=== PATIENT | female | born 1985 | race Asian ===

== ENCOUNTER → 2016-04-21 | Outpatient (CLI) | payer OTHER ==
[~2016-04-21] MED LIST: FRRS300 PO; MTR600X PO; OXYC-57 PO; PRENTAB26 PO
[2016-04-21 14:19] LABS: GTGD 50 Grams
[2016-04-22 15:26] LABS: AFP CONCENTRATION 84.2 NG/ML; AFP MULTIPLE OF MEDIAN 1.79; AFPTS GESTATIONAL AGE 17.9 WEEKS; AFPTS INSULIN DEP DIABETIC? NO; AFPTS MATERNAL WT 128 LBS; HISTORY OF NTD NO; INHIBIN A 183 PG/ML; INHIBIN A MOM 1.03; REPEAT SAMPLE? NO; hCG MULTIPLE OF MEDIAN 2.66
== END | disposition home or self-care (01) ==
LOC: C.LAB1850 12:16
PROVIDERS: ATTEND Obstetrics & Gynecology
DX: Z34.02 Encounter for supervision of normal first pregnancy, second trimester (principal)

== ENCOUNTER → 2016-06-23 | Outpatient (CLI) | payer OTHER ==
[2016-06-23 16:50] LABS: HEMATOCRIT 37.2 % (37-47)
[2016-06-23 17:38] LABS: URINE APPEARANCE CLEAR (CLEAR); URINE BILIRUBIN NEG (NEG); URINE COLOR YELLOW; URINE EPITHELIAL CELL AUTO 0-5 /lpf (0-5); URINE NITRITE NEG (NEG); URINE PH 6.5 (4.5-7.5); URINE SPECIFIC GRAVITY 1.004 (1.000-1.030); UROBILINOGEN NEG (NEG)
[2016-06-23 17:48] LABS: MANUAL MICROSCOPIC REQUIRED? NO; REVIEW REQ? NO
[2016-06-23 22:21] LABS: GTGD 50 Grams
== END | disposition home or self-care (01) ==
LOC: C.LAB1850 15:05
PROVIDERS: ATTEND Obstetrics & Gynecology
DX: Z34.03 Encounter for supervision of normal first pregnancy, third trimester (principal)

== ENCOUNTER → 2016-08-31 | Outpatient (CLI) | payer OTHER | END | disposition home or self-care (01) | LOC: C.LABSPEC 15:49 | PROVIDERS: ATTEND Obstetrics & Gynecology | DX: Z34.03 Encounter for supervision of normal first pregnancy, third trimester (principal) ==

== ENCOUNTER 2016-09-25 05:31 | Inpatient (IN) | payer OTHER ==
[~2016-09-25] VITALS: Ht 160 cm; Wt 70.0 kg
[2016-09-25] MEDS ORDERED: LACTATED RINGER'S 1000ML 1,000 ML IV PRN (16:03)
[2016-09-25] MEDS ORDERED: LACTATED RINGER'S 1000ML 1,000 ML IV SCH ×2 (16:03→21:31)
[2016-09-25] MEDS ORDERED: ACETAMINOPHEN 650 MG SUPP PR STA (16:05)
[2016-09-25] MEDS ORDERED: PATIENT'S ALLERGY INFO NEEDS ENTERED SCH (16:15)
[2016-09-25] MEDS ORDERED: AMPICILLIN/SULBACTAM SOD INJ 3,000 MG in SODIUM CHLORIDE 0.9% 100ML 100 ML IV SCH (16:30)
[2016-09-25 16:45] LABS: HEMATOCRIT 39.5 % (37-47); MEAN CELL VOLUME 92.7 fL (80-100); MEAN CORPUSCULAR HEMOGLOBIN 31.2 pg (25-34); MEAN CORPUSCULAR HGB CONC 33.7 g/dl (32-36); MEAN PLATELET VOLUME 10.8 fL (7.4-10.4); PLATELET COUNT 234 K/uL (130-400); RED BLOOD COUNT 4.26 M/uL (4.2-5.4); WHITE BLOOD COUNT 15.05 K/uL (4.8-10.8)
[2016-09-25] MEDS ORDERED: EpHEDrine SULFATE INJ 50 MG/ML AMP ONE (16:52)
[2016-09-25] MEDS ORDERED: BUPIVACAINE 0.25% 30 ML VIAL ONE (16:52)
[2016-09-25] MEDS ORDERED: FENTANYL CITRATE INJ 50 MCG/1 ML 2 ML VIAL ONE (16:53)
[2016-09-25] MEDS ORDERED: FENTANYL 2MCG/ML ROPIV 1.25MG/ML 100ML BAG EPI ONE (16:53)
[2016-09-25] MEDS ORDERED: NALOXONE HCL INJ 1 MG in SODIUM CHLORIDE 0.9% 1000ML 1,000 ML IV PRN (17:22)
[2016-09-25] MEDS ORDERED: LACTATED RINGER'S 1000ML 500 ML IV PRN (17:22)
[2016-09-25 17:28] LABS: BASO % 0.1 %; BASO ABS # 0.01 K/uL (0-0.2); COMPLETE YES; EOS % 0.1 %; IG% 0.2 %; LYMPH % 4.7 %; LYMPH ABS # 0.71 K/uL (1.2-3.4); MONO % 2.7 %; NEUT % 92.2 %
[2016-09-25] MEDS ORDERED: NALOXONE HCL INJ 0.4 MG/1 ML VIAL/CARP IV PRN (17:30)
[2016-09-25] MEDS ORDERED: ONDANSETRON INJ 2 MG/ML 2 ML VIAL IV PRN (17:30)
[2016-09-25] MEDS ORDERED: NALBUPHINE HCL INJ 10 MG/ML AMP IV PRN (17:30)
[2016-09-25] MEDS ORDERED: EpHEDrine SULFATE INJ 50 MG/ML AMP IV PRN (17:30)
[2016-09-25] MEDS ORDERED: DiphenhydrAMINE HCL 50 MG/ML VIAL IV PRN (17:30)
[2016-09-25] MEDS ORDERED: FENTANYL 2MCG/ML ROPIV 1.25MG/ML 100ML BAG EPI PRN (17:30)
[2016-09-25 17:45] VITALS: Ht 160 cm; Wt 70.0 kg
[2016-09-25] MEDS ORDERED: PRENTAB26 PO (17:53)
[2016-09-25] MEDS ORDERED: OXYTOCIN INJ 10 UNITS/ML VIAL ONE ×2 (20:35→21:19)
[2016-09-25] MEDS ORDERED: LIDOCAINE/EPINEPHRINE 2% 1:200,000 20 ML SDV ONE (20:38)
[2016-09-25] MEDS ORDERED: CITRIC ACID/SODIUM CITRATE 15 ML UDC PO ONE (20:45)
[2016-09-25] MEDS ORDERED: CEFAZOLIN IV 2,000 MG in DEXTROSE 5% 50ML 50 ML IV STA (20:57)
[2016-09-25] MEDS ORDERED: CEFAZOLIN SOD 1 GM VIAL ONE (21:09)
[2016-09-25] MEDS ORDERED: CARBOPROST TROMETHAMINE 250 MCG/ML AMP ONE (21:10)
[2016-09-25] MEDS ORDERED: ONDANSETRON INJ 2 MG/ML 2 ML VIAL ONE (21:15)
[2016-09-25] MEDS ORDERED: DEXAMETHASONE SOD INJ 4 MG/ML VIAL ONE (21:15)
[2016-09-25] MEDS ORDERED: MoRPHine SULFATE PF 1 MG/ML 10 ML AMP/VIAL ONE (21:20)
[2016-09-25] MEDS ORDERED: OXYTOCIN INJ 30 UNITS in LACTATED RINGER'S 1000ML 1,000 ML IV SCH (21:31)
[2016-09-25] MEDS ORDERED: DIPHTHERIA/TETANUS/PERTUSSIS 0.5 ML SYR/VIAL IM. ONE (21:45)
[2016-09-25] MEDS ORDERED: KETOROLAC TROMETHAMINE 30 MG/ML VIAL IV. PRN ×2 (21:45→22:00)
--- NOTE | 2016-09-25 21:54 | Anesthesia Procedure Note ---
Anesthesia Epidural Removal Nt Date & Time Sep 25, 2016 at 21:54 Notes Mental Status: alert / awake / arousable, participated in evaluation Nausea / Vomiting: adequately controlled Pain: adequately controlled Airway Patency, RR, SpO2: stable & adequate BP & HR: stable & adequate Hydration State: stable & adequate Neuraxial Anesthesia: was administered Anesthetic Complications: no major complications apparent, pt satisfied with anesthetic care Epidural: removed without complications, with tip intact
[2016-09-25] MEDS ORDERED: MoRPHine SULFATE PF 1 MG/ML 10 ML AMP/VIAL EPI PRN (22:00)
[2016-09-25] MEDS ORDERED: NO NARCOTICS OR SEDATIVES SCH (22:00)
[2016-09-25] MEDS ORDERED: CONTINUE MEDICATION ONE (22:00)
[2016-09-25] MEDS ORDERED: AMPICILLIN/SULBACTAM SOD INJ 1,500 MG in SODIUM CHLORIDE 0.9% 100ML 100 ML IV SCH (22:00)
--- NOTE | 2016-09-25 23:14 | Anesthesiology Progress Note ---
Anesthesia Post Op Note Date & Time Sep 25, 2016 at 23:13 Notes Mental Status: alert / awake / arousable, participated in evaluation Pt Amnestic to Procedure: No Nausea / Vomiting: adequately controlled Pain: adequately controlled Airway Patency, RR, SpO2: stable & adequate BP & HR: stable & adequate Hydration State: stable & adequate Neuraxial Anesthesia: was administered, sensory block is resolving Anesthetic Complications: no major complications apparent
--- NOTE | 2016-09-25 23:21 | [facility] Operative Report ---
Operative Report Operative Date Sep 25, 2016. Pre-Operative Diagnosis 1. Term intrauterine 2. Spontaneous rupture of membranes 3. Non reassuring heart rate 4. Thick meconium 5. Chorioamnionitis Post-Operative Diagnosis same Procedure(s) Performed Primary low transverse section Surgeon Dr. Ana Lua Chin Strap Sewer Surgeon(s) Diana Calderon. RN Estimated Blood Loss 600CC Findings Viable male infant Apgars 8 and 9. Normal uterus tubes and ovaries bilaterally. Fluids 1300 Specimens cord blood placenta - exam cord gases Drains Harper catheter Anesthesia epidural with Duramorph Complication(s) None Disposition Recovery Room / PACU Indications 30-year-old 1 para 0 at term who presented with spontaneous rupture of membranes and developed a fever. She was given the diagnosis of chorioamnionitis and started on broad-spectrum antibiotics. She was progressing slowly and the heart tones became more nonreassuring. She also developed thick meconium and given extremely slow progress as well as the deep variable decelerations that would come with intermittent contractions the decision was made to recommend and the patient agreed. Description of Procedure The patient was taken to the operating room and identified. She was placed in the supine position with a leftward tilt and prepped and draped in the usual sterile fashion. A Harper catheter had already been placed under sterile conditions. The knife was used to create a Pfannenstiel skin incision that was carried down to the underlying layer of fascia. The fascia was nicked in the midline and was extended laterally using Riggs scissors. The fascia was elevated and transected away from the underlying rectus muscles both superiorly and inferiorly both sharply and bluntly. The rectus muscles were bluntly in the midline and the peritoneal cavity was bluntly entered into. The opening was stretched. The bladder blade was placed. The vesicouterine peritoneum was elevated and entered into sharply and extended laterally and the bladder flap was created digitally. The bladder blade was replaced. The knife was used to create a hysterotomy that was stretched. The mirror finishing machine operator hand was placed through the hysterotomy and the head was elevated and flexed and with fundal pressure delivered. Shoulders and body were delivered rapidly with further fundal pressure and the nose and mouth were bulb suctioned. The cord was clamped and cut and the was handed off to the awaiting early childhood. Cord blood and cord gases were obtained. The placenta was manually expressed. The uterus was exteriorized and cleared of all clots and debris. The hysterotomy was closed in a running inter locking fashion followed by a second imbricating layer using 0 Vicryl. Additional bleeding sites at the hysterotomy were stitched for excellent hemostasis using 2-0 Vicryl. The pelvis was irrigated. The uterus returned to the abdomen. The gutters were cleared of all clots and debris. The hysterotomy was reinspected and noted to be hemostatic. The fascia was then closed in a running fashion using 0 Vicryl. The subcutaneous fat was copiously irrigated. The subcutaneous tissue was reapproximated using 2-0 chromic. The skin was then closed in a subcuticular fashion using 4-0 Vicryl. All sponge lap and needle counts were correct 2. The patient was returned to the recovery room in stable condition. I attest to the content of the Intraoperative Record and any orders documented therein. Any exceptions are noted below.
[2016-09-26] VITALS (21 sets, daily range): BP systolic 90–114; BP diastolic 55–75; PULSE 72–92; TEMP 36.6–37.4; O2SAT 95–100
[2016-09-26 06:20] LABS: HEMATOCRIT 31.9 % (37-47); MEAN CELL VOLUME 92.7 fL (80-100); MEAN CORPUSCULAR HEMOGLOBIN 30.8 pg (25-34); MEAN CORPUSCULAR HGB CONC 33.2 g/dl (32-36); PLATELET COUNT 209 K/uL (130-400); RED BLOOD COUNT 3.44 M/uL (4.2-5.4); WHITE BLOOD COUNT 21.86 K/uL (4.8-10.8)
[2016-09-26 06:54] LABS: BASO ABS # 0.01 K/uL (0-0.2); COMPLETE YES; IG% 0.4 %; LYMPH % 5.1 %; LYMPH ABS # 1.12 K/uL (1.2-3.4); MONO % 4.3 %; NEUT % 90.2 %
--- NOTE | 2016-09-26 07:54 | Progress Note ---
Subjective Sep 26, 2016. Subjective conversation w/ patient, physical exam Ambulation: limited ambulation (at rest with duramorph orders) Voiding: jolly catheter in place Passing Gas: Yes Diet Tolerance: Clear Liquids Lochia: Moderate Feeding Type: Breast Feeding Pain: denies issues with pain Comment: denies fever or chills. Objective Vital Signs Date Time Temp Pulse Resp B/P (MAP) Pulse Ox O2 Delivery O2 Flow Rate FiO2 09/26/16 06:20 18 95 09/26/16 05:20 18 95 09/26/16 04:10 37.1 83 18 114/72 (86) 96 Room Air 09/26/16 04:10 18 96 09/26/16 03:20 18 96 09/26/16 02:20 18 96 09/26/16 01:20 84 18 112/72 (85) 95 Room Air 09/26/16 01:20 18 95 09/26/16 00:20 37.4 92 18 114/75 (88) 96 Room Air 09/26/16 00:20 18 96 09/26/16 00:20 Room Air Physical Exam General Appearance: WELL-APPEARING, WD/WN, NO APPARENT DISTRESS (cheeks flush) Respiratory/Chest: lungs clear Cardiovascular: regular rate, rhythm Abdomen: non tender, soft Fundus: Firm, Relation to Umbilicus (2 down) Incision Description: Clean, Dry & Intact (dressing intact) Extremities: non-tender Laboratory Results Last 24 Hours Test 09/25/16 16:15 09/26/16 06:05 White Blood Count 15.05 K/uL 21.86 K/uL Red Blood Count 4.26 M/uL 3.44 M/uL Hemoglobin 13.3 g/dL 10.6 g/dL Hematocrit 39.5 % 31.9 % Mean Corpuscular Volume 92.7 fL 92.7 fL Mean Corpuscular Hemoglobin 31.2 pg 30.8 pg Mean Corpuscular Hemoglobin Concent 33.7 g/dl 33.2 g/dl Platelet Count 234 K/uL 209 K/uL Mean Platelet Volume 10.8 fL 10.0 fL Neutrophils (%) (Auto) 92.2 % 90.2 % Lymphocytes (%) (Auto) 4.7 % 5.1 % Monocytes (%) (Auto) 2.7 % 4.3 % Eosinophils (%) (Auto) 0.1 % 0.0 % Basophils (%) (Auto) 0.1 % 0.0 % Neutrophils # (Auto) 13.89 K/uL 19.68 K/uL Lymphocytes # (Auto) 0.71 K/uL 1.12 K/uL Monocytes # (Auto) 0.40 K/uL 0.95 K/uL Eosinophils # (Auto) 0.01 K/uL 0.01 K/uL Basophils # (Auto) 0.01 K/uL 0.01 K/uL RDW Standard Deviation 44.0 fL 44.4 fL RDW Coefficient of Variation 13.1 % 13.0 % Immature Granulocyte % (Auto) 0.2 % 0.4 % Immature Granulocyte # (Auto) 0.03 K/uL 0.09 K/uL Red Blood Cell Morphology Unremarkable Assessment and Plan Post-, Post-Op Day#: 1 Continue Routine Care: stable, routine care. discussed circumstances for delivery. will watch temp curve. adv diet, ambulate later today. jolly still in.
[2016-09-26] MEDS: SIMETHICONE 80 MG CHEW PO SCH ×4 (08:12→19:18)
[2016-09-26] MEDS: DOCUSATE SODIUM 100 MG CAP PO SCH ×2 (08:12→19:17)
[2016-09-26] MEDS: PRENATAL VITAMIN TAB PO SCH (08:12)
[2016-09-26] MEDS ORDERED: ONDANSETRON INJ 2 MG/ML 2 ML VIAL IV PRN (16:30)
[2016-09-26] MEDS ORDERED: OXYCODONE/ACETAMINOPHEN 5-325 TAB PO PRN (16:30)
[2016-09-26] MEDS ORDERED: DC INTRASPINAL MORPHINE ONE (16:30)
[2016-09-26] MEDS ORDERED: PROMETHAZINE HCL INJ 25 MG in SODIUM CHLORIDE 0.9% 50ML 50 ML IV PRN (16:30)
[2016-09-26] MEDS ORDERED: DiphenhydrAMINE HCL 50 MG/ML VIAL IV PRN (16:30)
[2016-09-26] MEDS ORDERED: MEPERIDINE HCL 50 MG/ML CARP IV PRN ×2 (16:30)
[2016-09-26] MEDS: OXYCODONE/ACETAMINOPHEN 5-325 TAB PO PRN (19:18)
[2016-09-26] MEDS: IBUPROFEN 600 MG TAB PO PRN (19:18)
--- NOTE | 2016-09-27 06:46 | Progress Note ---
Subjective Sep 27, 2016. Subjective conversation w/ patient, physical exam Ambulation: ambulating normally Voiding: no voiding problems Passing Gas: Yes Diet Tolerance: Regular Diet Lochia: Small Feeding Type: Breast Feeding Pain: denies pain issues Objective Vital Signs Date Time Temp Pulse Resp B/P (MAP) Pulse Ox O2 Delivery O2 Flow Rate FiO2 09/26/16 23:25 Room Air 09/26/16 23:25 36.6 72 18 90/55 (67) Room Air 09/26/16 19:30 37.1 92 16 97/62 (74) 09/26/16 15:48 36.7 87 20 96/61 (73) 100 Room Air 09/26/16 15:45 16 95 09/26/16 15:45 95 Room Air 09/26/16 14:20 16 98 09/26/16 13:20 18 97 09/26/16 12:20 18 99 09/26/16 11:20 18 99 09/26/16 11:20 75 16 91/57 (68) 99 Room Air 09/26/16 10:20 18 95 09/26/16 09:20 20 98 09/26/16 08:20 18 95 09/26/16 07:55 95 Room Air 09/26/16 07:50 37.2 76 18 101/65 (77) 97 Room Air 09/26/16 07:20 16 95 Physical Exam General Appearance: WELL-APPEARING, WD/WN, NO APPARENT DISTRESS Respiratory/Chest: lungs clear Cardiovascular: regular rate, rhythm Abdomen: non tender, soft Fundus: Firm, Relation to Umbilicus (2down) Incision Description: Clean, Dry & Intact Extremities: non-tender Laboratory Results Last 24 Hours Test 09/27/16 06:02 Assessment and Plan Post-, Post-Op Day#: 2 Continue Routine Care: stable, routine care, breast feeding. no temp issues. cbc this am pending.
[2016-09-27 06:49] LABS: BASO % 0.1 %; BASO ABS # 0.01 K/uL (0-0.2); COMPLETE YES; HEMATOCRIT 28.6 % (37-47); IG% 0.4 %; LYMPH % 11.8 %; LYMPH ABS # 2.04 K/uL (1.2-3.4); MEAN CELL VOLUME 94.7 fL (80-100); MEAN CORPUSCULAR HEMOGLOBIN 31.1 pg (25-34); MEAN CORPUSCULAR HGB CONC 32.9 g/dl (32-36); MEAN PLATELET VOLUME 10.5 fL (7.4-10.4); MONO % 4.1 %; NEUT % 82.6 %; PLATELET COUNT 195 K/uL (130-400); RED BLOOD COUNT 3.02 M/uL (4.2-5.4); WHITE BLOOD COUNT 17.36 K/uL (4.8-10.8)
[2016-09-27 07:42] VITALS: BP 96/60; PULSE 81; TEMP 36.7
[2016-09-27] MEDS: DOCUSATE SODIUM 100 MG CAP PO SCH ×2 (08:53→19:53)
[2016-09-27] MEDS: PRENATAL VITAMIN TAB PO SCH (08:53)
[2016-09-27] MEDS: OXYCODONE/ACETAMINOPHEN 5-325 TAB PO PRN ×2 (08:54→18:58)
[2016-09-27] MEDS: SIMETHICONE 80 MG CHEW PO SCH ×4 (08:54→19:53)
[2016-09-27] MEDS: IBUPROFEN 600 MG TAB PO PRN ×3 (08:54→18:58)
[2016-09-27 12:00] VITALS: BP 93/59; PULSE 80; TEMP 36.7
[2016-09-27 15:40] VITALS: BP 102/55; PULSE 70; TEMP 36.3; O2SAT 98
[2016-09-28 00:20] VITALS: O2SAT 97
[2016-09-28 00:45] VITALS: BP 97/64; PULSE 67; TEMP 36.6; O2SAT 97
[2016-09-28] MEDS: IBUPROFEN 600 MG TAB PO PRN ×3 (03:49→14:03)
--- NOTE | 2016-09-28 07:08 | Progress Note ---
Subjective Sep 28, 2016. Subjective conversation w/ patient, conversation w/ family Ambulation: ambulating normally Voiding: no voiding problems Passing Gas: Yes Diet Tolerance: Regular Diet Lochia: Small Feeding Type: Breast Feeding Review of Systems Constitutional: No fever, No chills, No sweats, No weight loss, No weakness, No fatigue, No problem reported Respiratory: No cough, No sputum, No wheezing, No shortness of breath, No dyspnea on exertion, No dyspnea at rest, No hemoptysis, No problem reported Cardiac: No chest pain, No orthopnea, No PND, No edema, No claudication, No palpitations, No problem reported Breast: No see HPI, No breast lump, No change in shape, No nipple discharge, No breast pain, No problem reported Abdomen: No pain, No nausea, No vomiting, No diarrhea, No constipation, No GI bleeding, No problem reported Female : No see HPI, No dysuria, No urinary frequency, No hematuria, No incontinence, No abnormal vaginal bleeding, No vaginal discharge, No problem reported Objective Vital Signs Date Time Temp Pulse Resp B/P (MAP) Pulse Ox O2 Delivery O2 Flow Rate FiO2 09/28/16 00:45 36.6 67 20 97/64 (75) 97 Room Air 09/28/16 00:20 97 Room Air 09/27/16 15:40 36.3 70 18 102/55 (71) 98 Room Air 09/27/16 15:40 98 Room Air 09/27/16 12:00 36.7 80 18 93/59 (70) Room Air 09/27/16 08:10 Room Air 09/27/16 07:42 36.7 81 18 96/60 (72) Room Air Physical Exam General Appearance: WELL-APPEARING, NO APPARENT DISTRESS Abdomen: soft Fundus: Firm, Non-Tender, Relation to Umbilicus (2 BELOW u) Incision Description: Clean, Dry & Intact Extremities: no calf tenderness Assessment and Plan Post-, Post-Op Day#: 3 Continue Routine Care: stable post-op/ course- afebrile discharge to home follow up in 2 weeks because of post-op endometritis
[2016-09-28] MEDS ORDERED: FRRS300 PO (07:29)
[2016-09-28] MEDS ORDERED: OXYC-57 PO (07:29)
[2016-09-28] MEDS ORDERED: MTR600X PO (07:29)
--- NOTE | 2016-09-28 07:34 | Discharge Instructions ---
Discharge Instructions Date of Service Sep 28, 2016. Admission Reason for Admission: Uterine Contractions Discharge Discharge Diagnosis / Problem: recovery from Discharge Goals Goal(s): Routine recovery after Medications Continue Dispensed Medications: lansinoh Activity Recommendations Activity Limitations: per Instructions/Follow-up section . Instructions / Follow-Up Instructions / Follow-Up ACTIVITY RECOMMENDATIONS: * Gradual return to full activity over the next 2-3 weeks. * No lifting - nothing heavier than baby over the next 2-3 weeks. * Do not engage in vigorous exercise, sexual activity or sports until cleared by your physician. * Do not drive or operate any motorized equipment until cleared by your physician. * You may shower/bathe daily. MEDICATIONS: For discomfort or pain, you may use Acetaminophen (Tylenol), Ibuprofen (Advil), or Naproxen (Aleve) following the package directions. For constipation you may use Colace following the package directions. BREAST CARE: If you are not breast feeding: * Wear a supportive bra 24 hours a day for one to two weeks. * Avoid stimulating your breasts and nipples as much as possible during the first few weeks after delivery. * When taking a shower, have the warm water hit your back, not breasts. * When your breasts feel full, apply ice packs. Usually three to four times a day helps ease the discomfort. * Take a mild pain medication (Tylenol / Motrin) when you are uncomfortable. If breast feeding: * Use breast milk to lubricate nipples. Lansinoh cream may be used for sore nipples. You do not need to remove cream prior to breast feeding. If using a different brand of cream, check the label for directions regarding removal of cream prior to nursing. * Wear a supportive bra. * If having problems with breasts or breast feeding, call a big machine consultant or your health care provider. SPECIAL CARE INSTRUCTIONS: When you are discharged from the hospital, it is important for you to follow the instructions listed below: * During the first week at home, you should be able to care for yourself and your baby. In addition, the usual light household activities are encouraged. * Limit your activities to the way you feel. Do not try to clean the house or move furniture. Be sensible. * If you actively engage in sports and have done so up until the time of your delivery, you may resume these activities as soon as you feel able. This may take up to one month or even longer. Use good judgment. * Continue to take your vitamins for at least six weeks after the of your baby. * Your diet need not be limited unless you were on a special diet before your delivery. Breast-feeding mothers need around 2500 calories per day and at least 64-80 ounces of fluid per day (8 to 10 glasses). * You should eat foods from the four major food groups. Crash diets or fad diets are to be avoided. Eating lean meats, fresh fruits and vegetables, low-fat dairy products, high fiber foods and a regular exercise program, will help you get back to your pre- weight without putting your health at risk. * Constipation is sometimes a problem after delivery. Take a mild laxative as needed. If breast feeding, Milk of Magnesia is acceptable to use. You may use a suppository or Fleets enema. * A daily shower or tub bath is suggested. Wash incision daily with warm soapy water and pat dry. It doesn't need to be covered unless drainage is present. * A bloody vaginal discharge will usually continue until around four weeks . A small amount of bleeding may continue for as long as six weeks. Vaginal discharge changes from the bright red bleeding after delivery to pink then brownish and finally yellowish-pink before becoming white and disappearing. * Bleeding may increase with activity. Your first period may come in 4-8 weeks. If you are breast feeding, your period may be delayed even longer. * Blunt (sex) can begin whenever both you and your partner feel comfortable and do not have any form of genital infection. It is recommended that you wait at least six weeks for internal and external healing to occur. If you have questions, please talk to your health care practitioner. A condom should be used to prevent infection and . * Foreplay, gentle intercourse and lubrication is very important the first several times to prevent pain. A water-based lubricant such as K-Y jelly or Astroglide may be used. * If you have RH negative blood and your baby is RH positive, you will receive RHOGAM by injection prior to discharge. The nurse will give you a card to keep with you that has the date and place that you received RHOGAM after delivery. * During your care, you had a Rubella screen done to check for the presence of rubella antibodies in your blood. If your test was negative, you will receive a Rubella vaccine prior to discharge. This vaccine may cause a fever, soreness at the injection site and flu-like symptoms. If these symptoms persist, notify your health care practitioner. is not advised for one month after a Rubella vaccine. * Verbalizes understanding of car seat law as reviewed with patient nursing. * Car Seat hand-out given and reviewed with patient by nursing. * Shaken baby information reviewed with patient by nursing. Call you doctor if: * Heavy bleeding (saturating several pads an hour) or passing clots the size of your fist. * A fever >101 degrees F (38.3 degrees C) on two occasions four hours apart and /or chills. * Unusual pain in the pelvic or vaginal areas. * Call the doctor for any increased redness, drainage or swelling around the incision and any pain unrelieved by prescribed pain medication. * "Baby Blues" lasting longer than two weeks. If you have any questions or concerns, call your health care practitioner at . FOLLOW UP VISIT: * Please call the office at to schedule a 6 week examination. It is important you keep this appointment. It is important for you to make arrangements for either yearly or twice yearly check-ups thereafter. Current Hospital Diet Patient's current hospital diet: Regular OB Diet Discharge Diet Recommended Diet: Regular OB Diet Procedures Procedures Performed: Primary Caesarean Delivery of live male child at 2105 Pending Studies Studies pending at discharge: no Medical Emergencies . Who to Call and When: Medical Emergencies: If at any time you feel your situation is an emergency, please call [phone] immediately. . Non-Emergent Contact Non-Emergency issues call your: Sales Account Director . . "Provider Documentation" section prepared by Mary Jane Thomas. . VTE Core Measure Inpt VTE Proph given/why not?: Treatment not indicated
[2016-09-28 08:00] VITALS: BP 103/67; PULSE 82; TEMP 36.6; O2SAT 98
[2016-09-28] MEDS ORDERED: FERROUS SULFATE 325 MG TAB PO SCH (08:00)
--- NOTE | 2016-09-28 08:03 | Discharge Instructions ---
Discharge Instructions Date of Service Sep 28, 2016. Admission Reason for Admission: Uterine Contractions Discharge Discharge Diagnosis / Problem: recovery from & uterine infection Discharge Goals Goal(s): Routine recovery after Medications Continue Dispensed Medications: lansinoh Activity Recommendations Activity Limitations: per Instructions/Follow-up section . Instructions / Follow-Up Instructions / Follow-Up ACTIVITY RECOMMENDATIONS: * Gradual return to full activity over the next 2-3 weeks. * No lifting - nothing heavier than baby over the next 2-3 weeks. * Do not engage in vigorous exercise, sexual activity or sports until cleared by your physician. * Do not drive or operate any motorized equipment until cleared by your physician. * You may shower/bathe daily. MEDICATIONS: For discomfort or pain, you may use Acetaminophen (Tylenol), Ibuprofen (Advil), or Naproxen (Aleve) following the package directions. For constipation you may use Colace following the package directions. BREAST CARE: If you are not breast feeding: * Wear a supportive bra 24 hours a day for one to two weeks. * Avoid stimulating your breasts and nipples as much as possible during the first few weeks after delivery. * When taking a shower, have the warm water hit your back, not breasts. * When your breasts feel full, apply ice packs. Usually three to four times a day helps ease the discomfort. * Take a mild pain medication (Tylenol / Motrin) when you are uncomfortable. If breast feeding: * Use breast milk to lubricate nipples. Lansinoh cream may be used for sore nipples. You do not need to remove cream prior to breast feeding. If using a different brand of cream, check the label for directions regarding removal of cream prior to nursing. * Wear a supportive bra. * If having problems with breasts or breast feeding, call a nissan sales consultant or your health care provider. SPECIAL CARE INSTRUCTIONS: When you are discharged from the hospital, it is important for you to follow the instructions listed below: * During the first week at home, you should be able to care for yourself and your baby. In addition, the usual light household activities are encouraged. * Limit your activities to the way you feel. Do not try to clean the house or move furniture. Be sensible. * If you actively engage in sports and have done so up until the time of your delivery, you may resume these activities as soon as you feel able. This may take up to one month or even longer. Use good judgment. * Continue to take your vitamins for at least six weeks after the of your baby. * Your diet need not be limited unless you were on a special diet before your delivery. Breast-feeding mothers need around 2500 calories per day and at least 64-80 ounces of fluid per day (8 to 10 glasses). * You should eat foods from the four major food groups. Crash diets or fad diets are to be avoided. Eating lean meats, fresh fruits and vegetables, low-fat dairy products, high fiber foods and a regular exercise program, will help you get back to your pre- weight without putting your health at risk. * Constipation is sometimes a problem after delivery. Take a mild laxative as needed. If breast feeding, Milk of Magnesia is acceptable to use. You may use a suppository or Fleets enema. * A daily shower or tub bath is suggested. Wash incision daily with warm soapy water and pat dry. It doesn't need to be covered unless drainage is present. * A bloody vaginal discharge will usually continue until around four weeks . A small amount of bleeding may continue for as long as six weeks. Vaginal discharge changes from the bright red bleeding after delivery to pink then brownish and finally yellowish-pink before becoming white and disappearing. * Bleeding may increase with activity. Your first period may come in 4-8 weeks. If you are breast feeding, your period may be delayed even longer. * [place] (sex) can begin whenever both you and your partner feel comfortable and do not have any form of genital infection. It is recommended that you wait at least six weeks for internal and external healing to occur. If you have questions, please talk to your health care practitioner. A condom should be used to prevent infection and . * Foreplay, gentle intercourse and lubrication is very important the first several times to prevent pain. A water-based lubricant such as K-Y jelly or Astroglide may be used. * If you have RH negative blood and your baby is RH positive, you will receive RHOGAM by injection prior to discharge. The nurse will give you a card to keep with you that has the date and place that you received RHOGAM after delivery. * During your care, you had a Rubella screen done to check for the presence of rubella antibodies in your blood. If your test was negative, you will receive a Rubella vaccine prior to discharge. This vaccine may cause a fever, soreness at the injection site and flu-like symptoms. If these symptoms persist, notify your health care practitioner. is not advised for one month after a Rubella vaccine. * Verbalizes understanding of car seat law as reviewed with patient nursing. * Car Seat hand-out given and reviewed with patient by nursing. * Shaken baby information reviewed with patient by nursing. Call you doctor if: * Heavy bleeding (saturating several pads an hour) or passing clots the size of your fist. * A fever >101 degrees F (38.3 degrees C) on two occasions four hours apart and /or chills. * Unusual pain in the pelvic or vaginal areas. * Call the doctor for any increased redness, drainage or swelling around the incision and any pain unrelieved by prescribed pain medication. * "Baby Blues" lasting longer than two weeks. If you have any questions or concerns, call your health care practitioner at . FOLLOW UP VISIT: * Please call the office at to schedule a 2 week examination. It is important you keep this appointment. It is important for you to make arrangements for either yearly or twice yearly check-ups thereafter. Current Hospital Diet Patient's current hospital diet: Regular OB Diet Discharge Diet Recommended Diet: Regular OB Diet Procedures Procedures Performed: Primary Caesarean Delivery of live male child at 2105 Pending Studies Studies pending at discharge: no Medical Emergencies . Who to Call and When: Medical Emergencies: If at any time you feel your situation is an emergency, please call [phone] immediately. . Non-Emergent Contact Non-Emergency issues call your: Mobile Engineer . . "Provider Documentation" section prepared by Mary Jane Thomas. . VTE Core Measure Inpt VTE Proph given/why not?: Treatment not indicated
[2016-09-28] MEDS: SIMETHICONE 80 MG CHEW PO SCH ×2 (08:04→14:03)
[2016-09-28] MEDS: DOCUSATE SODIUM 100 MG CAP PO SCH ×2 (08:04→14:03)
[2016-09-28] MEDS: OXYCODONE/ACETAMINOPHEN 5-325 TAB PO PRN ×2 (08:04→14:03)
[2016-09-28] MEDS: PRENATAL VITAMIN TAB PO SCH (08:04)
[2016-09-28 11:30] VITALS: BP 107/73; PULSE 74; TEMP 36.7
[2016-09-28 13:00] VITALS: BP_DIAS 73; PULSE 74; TEMP 36.7
--- NOTE | 2016-09-29 13:17 | Discharge Summary ---
Discharge Summary Date of Service Admission date: September 25, 2016. Discharege date:September 28, 2016. Discharge Summary Admission diagnoses: Term , Spontaneous Rupture of Membranes. Discharge diagnoses: same, Thick meconium. Non reassuring heart tones. Chorioamnionitis. Procedure: Primary Low Transverse Section Brief History and Hospital Course: 30yo at term who presented with spontaneous rupture of membranes of clear fluid initially. She developed fever in labor and was given antibiotics for presumed chorioamnionitis. She had intermittent deep and prolonged variable decelerations of heart tones and was remote from delivery. On my arrival, despite use of pitocin, the cervix was not progressing significantly and thick meconium was noted. She also had non reassuring heart tones with deep deceleratiions of heart tones on multiple occasions. The decision was made to proceed with above stated procedure. She recovered from procedure without incident. Her temperature curve remained normal. Her labs showed a resolving leukocytosis. She did not carry the diagnosis of endometritis, just chorioamnionitis in labor. She was given discharge instructions and prescriptions for pain on her postoperative day #3. She was told to followup in 2weeks time for her diagnosis of "endometritis" but again did not carry that diagnosis and in fact no antibiotics were given to patient after of baby.
== END 2016-09-28 15:15 | disposition home or self-care (01) | DRG 765 ==
LOC: C.OPB 05:31 → C.LD 05:31 → C.OPB 16:05 → C.LD 17:11 → C.OBG 09-26 00:34
PROVIDERS: ADMIT Obstetrics & Gynecology; ATTEND Obstetrics & Gynecology
PROC: 10D00Z1 Extraction of Products of Conception, Low, Open Approach (ICD-10-PCS; principal; 2016-09-25 20:42)
DX: O76 Abnormality in fetal heart rate and rhythm complicating labor and delivery (principal); O41.1230 Chorioamnionitis, third trimester, not applicable or unspecified; O48.0 Post-term pregnancy; O77.0 Labor and delivery complicated by meconium in amniotic fluid; Z3A.40 40 weeks gestation of pregnancy; Z37.0 Single live birth

== ENCOUNTER → 2016-11-16 | Outpatient (CLI) | payer OTHER | END | disposition home or self-care (01) | LOC: C.PAPS 08:12 | PROVIDERS: ATTEND Obstetrics & Gynecology | DX: Z12.4 Encounter for screening for malignant neoplasm of cervix (principal) ==